=== PATIENT | female | born 1965 | race Caucasian/White ===

== ENCOUNTER 2024-05-08 12:32 | Outpatient (REF) | payer MEDICARE, MEDICAID, SELFPAY ==
[2024-05-08 13:17] LABS: Basophils Percent Auto 0.3 % (0.2-2.0); Eosinophils Absolute Auto 0.1 10^3/uL (0.0-0.7); Eosinophils Percent Auto 1.9 % (0.9-7.0); Hematocrit 47.4 % (36.0-48.0); Hemoglobin 14.7 g/dL (12.0-16.0); Immature Granulocytes Abs Auto 0.01 10^3/uL (0.00-0.03); Immature Granulocytes Pct Auto 0.2 % (0.0-0.5); Lymphocytes Percent Auto 31.6 % (20.5-60.0); Mean Corpuscular Hemoglobin 31.5 pg (26.7-34.0); Mean Corpuscular Volume 101.5 fL (81.0-99.0); Mean Platelet Volume 12.1 fL (9.5-13.5); Monocytes Absolute Auto 0.5 10^3/uL (0.3-0.8); Neutrophils Absolute Auto 3.6 10^3/uL (1.4-6.5); Platelet Count 197 10^3/uL (150-450); Red Blood Count 4.67 10^6/uL (4.20-5.40); Red Cell Distribution Width 12.9 % (11.0-15.0); White Blood Count 6.3 10^3/uL (4.0-11.0)
[2024-05-08 13:53] LABS: Anion Gap 8.8; BUN Creatinine Ratio 23.8; Calcium 8.9 mg/dL (8.5-10.1); Carbon Dioxide 32.7 mmol/L (21.0-32.0); Chloride 103 mmol/L (98-107); Estimated GFR (African America >60 (>=60 mL/min/1.73m^2); Estimated GFR (Non-African Ame >60 (>=60 mL/min/1.73m^2); Glucose 94 mg/dL (74-106); Potassium 4.5 mmol/L (3.5-5.1); Sodium 140 mmol/L (136-145)
== END 2024-05-08 12:33 | disposition home or self-care (01) ==
LOC: LAB 12:32
PROVIDERS: PCP Family Medicine; Visit Provider Family Medicine
DX: D64.9 Anemia, unspecified (principal); J96.00 Acute respiratory failure, unspecified whether with hypoxia or hypercapnia
CPT/HCPCS: 36415; 80048; 85025